=== PATIENT | female | born 1980 | race Two or more races ===

== ENCOUNTER → 2021-04-06 | Day surgery (SDC) | payer OTHER ==
[~2021-04-06] MED LIST: NEXIUM 24HR20 MG PO; PRENATAL1 TAB
== END | disposition home or self-care (01) ==
LOC: AMB-ENDOS 06:00
PROVIDERS: ATTEND Surgery
DX: D13.1 Benign neoplasm of stomach (principal); K44.9 Diaphragmatic hernia without obstruction or gangrene